=== PATIENT | female | born 1965 | race Caucasian/White ===

== ENCOUNTER 2017-10-21 18:08 | Emergency (ER) | payer SELFPAY ==
[~2017-10-21 18:08] MED LIST: ASPI81TA82 PO; MOTR200T PO; PRIL20TA2 PO
[2017-10-21 18:51] VITALS: BP 151/72; PULSE 80; RESP 18; TEMP 98.6; O2SAT 97
--- NOTE | 2017-10-21 19:38 | PD ---
HPI . vaginal pressure Chief Complaint: A P Supervisor Problem/Complaint Time Seen by Provider: 18:59 Travel History International Travel<30 days: No Contact w/Intl Traveler<30days: No Traveled to known affect area: No History of Present Illness HPI pt has had pressure in vagina for few days and then she reports a discharge from vagina then she felt her vaginal entroitus with her finger and there was a lump , , no change in urine stream no frequency , no fever , No Hx of pelvic surgery , No recent heavy strain , pt has not seen a communication skills instructor MD for over 3 years . no other significant hx , pressure like feeling that is localized no radiation nothing alleviates it , she reports she discovered it today with fingerr and only felt down there because of a feeling she was having a fluid come out of vagina , " never felt into her vagina before today" PFSH Past Medical History Heart Rhythm Problems: No Cardiac Catheterization: No Cardiovascular Problems: No High Cholesterol: Yes Congestive Heart Failure: No Diabetes: No Tetanus Vaccination: Unknown Influenza Vaccination: No ?: Not Past Surgical History Section: Yes (1988) Coronary Artery Bypass Graft: No Tonsillectomy: Yes (1984) Social History Alcohol Use: Yes (DAILY/ 1-2 WINE) Tobacco Use: No Substance Use: No Allergies-Medications (Allergen,Severity, Reaction): Coded Allergies: Sulfa (Sulfonamide Antibiotics) (Unverified Allergy, Severe, Hives, ) penicillin G (Unverified Allergy, Severe, Hives, 10/21/17) Reported Meds & Prescriptions Reported Meds & Active Scripts Active Valium (Diazepam) 5 Mg Tab 5 Mg PO TID PRN Ibuprofen 600 Mg Tab 600 Mg PO Q6H PRN Review of Systems Except as stated in HPI: all other systems reviewed are Neg Physical Exam Narrative GENERAL: pelvic exam no obvious abnormality no discharge SKIN: Warm and dry. HEAD: Atraumatic. Normocephalic. EYES: Pupils equal and round. No scleral icterus. No injection or drainage. ENT: No nasal bleeding or discharge. Mucous membranes pink and moist. NECK: Trachea midline. No JVD. CARDIOVASCULAR: Regular rate and rhythm. RESPIRATORY: No accessory muscle use. Clear to auscultation. Breath sounds equal bilaterally. GASTROINTESTINAL: Abdomen soft, non-tender, nondistended. Hepatic and splenic margins not palpable. MUSCULOSKELETAL: Extremities without clubbing, cyanosis, or edema. No obvious deformities. NEUROLOGICAL: Awake and alert. No obvious cranial nerve deficits. Motor grossly within normal limits. Five out of 5 muscle strength in the arms and legs. Normal speech. PSYCHIATRIC: Appropriate mood and affect; insight and judgment normal. Data Data Last Documented VS Vital Signs Date Time Temp Pulse Resp B/P (MAP) Pulse Ox O2 Delivery O2 Flow Rate FiO2 10/21/17 18:51 98.6 80 18 151/72 (98) 97 Orders Orders Gc And Chlamydia Pcr (10/21/17 19:41) Wet Prep Profile (10/21/17 19:45) Urinalysis - C+S If Indicated (10/21/17 19:47) Us Pelvis Comp W Transvaginal (10/21/17 ) Ibuprofen (Motrin) (10/21/17 21:45) Labs Laboratory Tests Test 10/21/17 19:54 Urine Color STRAW Urine Turbidity CLEAR Urine pH 6.0 Urine Specific [place] 1.005 Urine Protein NEG mg/dL Urine Glucose (UA) NEG mg/dL Urine Ketones NEG mg/dL Urine Occult Blood LARGE Urine Nitrite NEG Urine Bilirubin NEG Urine Leukocyte Esterase NEG Urine RBC 1 /hpf Urine WBC 1 /hpf Urine Squamous Epithelial Cells 2 /hpf Microscopic Urinalysis Comment CULT NOT INDICATED Clue Cells (Wet Prep) NONE SEEN Vaginal Trichomonas (Wet Prep) NONE SEEN Vaginal Yeast (Wet Prep) NONE SEEN Chlamydia trachomatis DNA (PCR) NOT DETECTED Neisseria gonorrhoeae DNA (PCR) NOT DETECTED MDM Medical Decision Making Medical Screen Exam Complete: Yes Emergency Medical Condition: Yes Differential Diagnosis fibroids vs vaginitis vs uterine prolapse vs vagina atropy vs retained tampoon other . Narrative Course pelvic exam reveals no mass , speculum passes without obstruction possible slight fullness on lef tside vagian wall adnexal no CMT no discharge cultures sent and US of pelvis shows large fibroids , pt discharged to follow up as an outpt Diagnosis Primary Impression: Fibroid Qualified Codes: D25.9 - Leiomyoma of uterus, unspecified Patient Instructions: General Instructions, Uterine Fibroids (ED) Scripts Diazepam (Valium) 5 Mg Tab 5 MG PO TID Y for MUSCLE SPASM, #20 TAB 0 Refills Prov: Jean-Claude Hooks MD 10/21/17 Ibuprofen (Ibuprofen) 600 Mg Tab 600 MG PO Q6H Y for Pain/Inflammation, #40 TAB 0 Refills Prov: Jean-Claude Hooks MD 10/21/17 Disposition: 01 DISCHARGE HOME Condition: Good Jean-Claude Hooks MD Oct 21, 2017 19:38
[2017-10-21 21:01] LABS: BILIRUBIN, URINE NEG (NEG); BLOOD, URINE LARGE (NEG); GLUCOSE,URINE NEG (NEG); KETONE, URINE NEG (NEG); NITRITE,URINE NEG (NEG); SQUAMOUS EPITHELIAL CELL URINE 2 /hpf (0-5); URINE LEUKOCYTE ESTERASE NEG (NEG)
[2017-10-21 21:11] LABS: URINE COLOR STRAW (YELLW/STRAW)
--- NOTE | 2017-10-21 21:44 | RADRPT ---
EXAM DATE: 10/21/2017 9:36 PM EDT AGE/SEX: 51 years / Female INDICATIONS: Vaginal pressure and discharge. Evaluate for mass. CLINICAL DATA: This is the patient's initial encounter. Patient reports that signs and symptoms have been present for 3 days and indicates a pain score of 0/10. MEDICAL/SURGICAL HISTORY: Hypercholesterolemia. section. Tonsillectomy. COMPARISON: No prior exams available for comparison. MEASUREMENTS: Uterus:__11.8 x 6.2 x 8.9 cm Endometrial Stripe:__10 mm Right Ovary:__ 2.5 x 1.8 x 1.5 cm Left Ovary:__ 3.4 x 3.3 x 1.6 cm FINDINGS: Uterus: Uterus is slightly heterogeneous and contains several lesions which are partially calcified largest measuring 2.2 cm. There is one in the fundus measuring 1.3 cm and one within the mid uterus m easuring 1 cm. There is some fluid within the lower endometrial canal. There are some nabothian cysts seen as well. Right Ovary: Appears normal Left Ovary: Appears normal Other: No free fluid. CONCLUSION: 1. Fluid in endometrial canal. 2. Multiple uterine leiomyomas. Electronically signed by: Bruno Solis MD 10/21/2017 9:43 PM EDT
[2017-10-21] MEDS ORDERED: IBUPROFEN 600 MG TAB PO ONE (21:45)
[2017-10-21] MEDS ORDERED: IBUP-232 PO (22:32)
[2017-10-21] MEDS ORDERED: DIAZ5 PO (22:32)
== END 2017-10-21 22:58 | disposition home or self-care (01) ==
LOC: NEPE 18:08
DX: D25.9 Leiomyoma of uterus, unspecified (principal); E78.00 Pure hypercholesterolemia, unspecified
CPT/HCPCS: 76830; 76856; 81001; 87210; 87491; 87591; 99284